=== PATIENT | male | born 1945 | race Caucasian/White ===

== ENCOUNTER → 2016-06-24 | Outpatient (CLI) | payer OTHER, MEDICARE | LOC: BMCIMAGING 15:11 | PROVIDERS: ATTEND Family Medicine | DX: R53.83 Other fatigue (principal); R05 Cough; Z85.820 Personal history of malignant melanoma of skin ==

== ENCOUNTER → 2016-07-19 | Outpatient (CLI) | payer OTHER, MEDICARE ==
[~2016-07-19] MED LIST: GADOBUTROL 10 ML VIAL IVP ONE
== END ==
LOC: FIMAGING 15:29
PROVIDERS: ATTEND Internal Medicine Hematology & Oncology
DX: Z12.89 Encounter for screening for malignant neoplasm of other sites (principal); Z85.820 Personal history of malignant melanoma of skin
CPT/HCPCS: 70553; A9585

== ENCOUNTER → 2017-02-19 | Outpatient (CLI) | payer OTHER, MEDICARE | LOC: FIMAGING 08:17 | PROVIDERS: ATTEND Internal Medicine Hematology & Oncology | DX: N28.9 Disorder of kidney and ureter, unspecified (principal); K76.89 Other specified diseases of liver ==

== ENCOUNTER 2017-09-20 10:06 | Emergency (ER) | payer OTHER, MEDICARE ==
--- NOTE | 2017-09-20 10:18 | CPEKG ---
Heart Rate: 60 RR Interval: 1000 P-R Interval: 200 QRSD Interval: 108 QT Interval: 416 QTC Interval: 416 P [place]: 37 QRS [place]: 3 T Wave [place]: 49 EKG Severity - NORMAL ECG - EKG Impression: SINUS RHYTHM Electronically Signed By: Stoney Agee 21-Sep-2017 07:38:31
--- NOTE | 2017-09-20 10:35 | EDPHY ---
H & P Time Seen by Provider: 09/20/17 10:17 HPI/ROS: CHIEF COMPLAINT: Chest pain HISTORY OF PRESENT ILLNESS: Patient is a 72-year-old male with a history of metastatic melanoma who presents to the emergency department with chest pain. The pain woke him up from sleep between 12:00 a.m.. It was sharp and stabbing. It was mid chest. It lasted for 1-2 minutes and then resolved. He took ibuprofen at the time he now is chest pain-free. He had no shortness of breath or cough. No fevers or chills. No leg pain or swelling. Patient states that [place] intermitt[place] This makes it hard for him to sleep. He tried Diamox for his symptoms. He feels this medicine make him feel fatigued the following days. Yesterday he was back to normal. The patient at took aspirin prior to arrival. REVIEW OF SYSTEMS: My complete review of systems is negative except as mentioned in the HPI. Past Medical/Surgical History: Includes metastatic melanoma, decreased adrenal function, decreased thyroid function, BPH Past surgical history: Melanoma surgery and lymph node dissection Social history: The patient is . He does not smoke. Smoking Status: Former smoker Physical Exam: Vitals noted GENERAL: Well-appearing, in no acute distress, alert. HEENT: Eyes normal to inspection, normal pharynx, no signs of dehydration. NECK: No thyromegaly, no lymphadenopathy, supple. RESPIRATORY: Clear to auscultation bilaterally, no rales, rhonchi or wheezing. CVS: Regular rate and rhythm, no rubs, murmurs, or gallops. ABDOMEN: Soft, nontender, nondistended, no organomegaly. BACK: Normal to inspection, no CVA tenderness. SKIN: Normal color, no rash, warm, dry. No pallor. EXTREMITIES: No pedal edema, no calf tenderness, no Homans sign or cords, no joint swelling. NEURO/PSYCH: Alert and oriented x3, normal mood and affect, normal motor sensory exam. No obvious cranial nerve deficit. Constitutional: Initial Vital Signs Temperature (C) 36.6 C 09/20/17 10:20 Heart Rate 62 09/20/17 10:20 Respiratory Rate 14 09/20/17 10:20 Blood Pressure 123/75 H 09/20/17 10:20 O2 Sat (%) 92 09/20/17 10:20 O2 Delivery Mode Room Air Allergies/Adverse Reactions: ENVIRONMENTAL Allergy (Mild, Uncoded 06/25/13 11:44) RUNNY NOSE/SNEEZING/NASAL CONGESTION/ITCHY EYES Home Medications: Medication Instructions Recorded Cholecalciferol Vit D3 [D--Gracie] 7,500 unit PO DAILY 06/25/13 Ibuprofen [Motrin] 200 mg PO BID PRN 06/25/13 LORazepam [Ativan 0.5 mg (RX)] 0.5 mg PO HS PRN 06/25/13 Melatonin 20 mg PO HS 06/25/13 Naproxen Sodium [Aleve 220 mg 220 mg PO BID 06/25/13 (OTC)] Terazosin HCl [Hytrin] 5 mg PO HS 06/25/13 Fosamax 5mg 09/20/17 Hydrocortisone 09/20/17 Levothyroxine 09/20/17 Medical Decision Making - Diagnostics Imaging Results: Imaging Impressions Chest X-Ray 09/20/17 10:31 Impression: Chest negative for acute abnormality. ED Course/Re-evaluation: In the emergency department I discussed possible etiologies with the patient and his . I answered all his questions. IV was placed. Laboratory studies , EKG and chest x-ray were obtained. EKG shows normal sinus rhythm, normal rate, normal axis, normal intervals. There are no ST or T-wave abnormalities. EKG is normal as interpreted by me. Patient's chemistry panel is unremarkable. Troponin was negative. Patient had a mildly low white count at 3. Patient was mildly anemic with hematocrit 37. I rechecked the patient while here. He was chest pain-free. He had no other complaints Gave the patient warnings prior to leaving. He will return with worsening symptoms. Follow up with primary care physician. Differential Diagnosis: My differential includes but is not limited to ACS, acute GA, pericarditis, myocarditis, dissection, aneurysm, PE, malignancy - Data Points Laboratory Results: Laboratory Results 09/20/17 10:19 09/20/17 10:19 09/20/17 09/20/17 09/20/17 10:24 10:19 10:19 WBC 3.38 10^3/uL L 10^3/uL (3.80-9.50) RBC 4.32 10^6/uL L 10^6/uL (4.40-6.38) Hgb 13.3 g/dL L g/dL (13.7-17.5) Hct 37.4 % L % (40.0-51.0) MCV 86.6 fL fL (81.5-99.8) MCH 30.8 pg pg (27.9-34.1) MCHC 35.6 g/dL g/dL (32.4-36.7) RDW 12.3 % % (11.5-15.2) Plt Count 179 10^3/uL 10^3/uL (150-400) MPV 9.8 fL fL (8.7-11.7) Neut % (Auto) 42.9 % % (39.3-74.2) Lymph % (Auto) 45.9 % H % (15.0-45.0) [place] % (Auto) 6.5 % % (4.5-13.0) Eos % (Auto) 4.1 % % (0.6-7.6) Baso % (Auto) 0.6 % % (0.3-1.7) Nucleat RBC Rel Count 0.0 % % (0.0-0.2) Absolute Neuts (auto) 1.45 10^3/uL L 10^3/uL (1.70-6.50) Absolute Lymphs (auto) 1.55 10^3/uL 10^3/uL (1.00-3.00) Absolute Monos (auto) 0.22 10^3/uL L 10^3/uL (0.30-0.80) Absolute Eos (auto) 0.14 10^3/uL 10^3/uL (0.03-0.40) Absolute Basos (auto) 0.02 10^3/uL 10^3/uL (0.02-0.10) Absolute Nucleated RBC 0.00 10^3/uL 10^3/uL (0-0.01) Immature Gran % 0.0 % % (0.0-1.1) Immature Gran # 0.00 10^3/uL 10^3/uL (0.00-0.10) Sodium 145 mEq/L mEq/L (135-145) Potassium 4.0 mEq/L mEq/L (3.3-5.0) Chloride 108 mEq/L mEq/L (97-110) Carbon Dioxide 25 mEq/l mEq/l (22-31) Anion Gap 12 mEq/L mEq/L (8-16) BUN 27 mg/dL H mg/dL (7-23) Creatinine 0.9 mg/dL mg/dL (0.7-1.3) Estimated GFR > 60 Glucose 76 mg/dL mg/dL (70-100) Calcium 9.1 mg/dL mg/dL (8.5-10.4) Total Bilirubin 0.8 mg/dL mg/dL (0.1-1.4) Conjugated Bilirubin 0.3 mg/dL mg/dL (0.0-0.5) Unconjugated Bilirubin 0.5 mg/dL mg/dL (0.0-1.1) AST 20 IU/L IU/L (17-59) ALT 19 IU/L L IU/L (21-72) Alkaline Phosphatase 77 IU/L IU/L (38-126) POC Troponin I 0.00 ng/mL ng/mL (0.00-0.08) Total Protein 6.5 g/dL g/dL (6.3-8.2) Albumin 3.7 g/dL g/dL (3.5-5.0) Lipase 119 IU/L IU/L (23-300) Point of Care Test Results: Chemistry 09/20/17 10:24 POC Troponin I 0.00 ng/mL ng/mL (0.00-0.08) Departure - Departure Disposition: Home, Routine, Self-Care Clinical Impression: Chest pain Qualifiers: Chest pain type: unspecified Qualified Code(s): R07.9 - Chest pain, unspecified Condition: Good Instructions: Chest Pain (ED) Additional Instructions: Return with increasing chest pain, shortness of breath or any other concerns. You are mildly anemic. This will need follow-up with your primary care physician. Referrals: Eloy Anne DO [Primary Care Provider] - 2-3 days, call for appt.
[2017-09-20 10:39] LABS: PLATELET COUNT 179 10^3/uL (150-400)
[2017-09-20 12:53] VITALS: BP 126/81
== END 2017-09-20 12:53 | disposition home or self-care (01) ==
DX: R07.9 Chest pain, unspecified (principal); Z85.820 Personal history of malignant melanoma of skin; Z87.891 Personal history of nicotine dependence
CPT/HCPCS: 84484-PO

== ENCOUNTER → 2018-04-29 | Outpatient (CLI) | payer OTHER, MEDICARE | LOC: BRMIMAGING 13:08 | PROVIDERS: ATTEND Internal Medicine Rheumatology | DX: Z13.820 Encounter for screening for osteoporosis (principal); M85.89 Other specified disorders of bone density and structure, multiple sites; E07.9 Disorder of thyroid, unspecified; Z79.52 Long term (current) use of systemic steroids ==

== ENCOUNTER 2018-06-01 15:12 | Inpatient (IN) | payer OTHER, MEDICARE ==
--- NOTE | 2018-06-01 15:31 | EDPHY ---
H & P Stated Complaint: ? airway compromise gurgling/hypoxia Time Seen by Provider: 06/01/18 15:31 - Personal History Current Tetanus Diphtheria and Acellular Pertussis (TDAP): Yes - Medical/Surgical History Hx Asthma: No Hx Chronic Respiratory Disease: No Hx Diabetes: No Hx Cardiac Disease: No Hx Renal Disease: No Hx Cirrhosis: No Hx Alcoholism: No Hx HIV/AIDS: No Hx Splenectomy or Spleen Trauma: No Other PMH: monoclonal antibioties-study for melanoma, BPH, - Social History Smoking Status: Former smoker Constitutional: Initial Vital Signs Temperature (C) 37.1 C 06/01/18 15:20 Heart Rate 74 06/01/18 15:20 Respiratory Rate 18 06/01/18 15:20 Blood Pressure 154/59 H 06/01/18 15:20 O2 Sat (%) 86 L 06/01/18 15:20 O2 Delivery Mode Nasal Cannula O2 (L/minute) 2 Allergies/Adverse Reactions: ENVIRONMENTAL Allergy (Mild, Uncoded 06/01/18 15:19) RUNNY NOSE/SNEEZING/NASAL CONGESTION/ITCHY EYES Home Medications: Medication Instructions Recorded Cholecalciferol Vit D3 [D--Gracie] 7,500 unit PO DAILY 06/25/13 Ibuprofen [Motrin] 200 mg PO BID PRN 06/25/13 LORazepam [Ativan 0.5 mg (RX)] 0.5 mg PO HS PRN 06/25/13 Melatonin 20 mg PO HS 06/25/13 Naproxen Sodium [Aleve 220 mg 220 mg PO BID 06/25/13 (OTC)] Terazosin HCl [Hytrin] 5 mg PO HS 06/25/13 Fosamax 5mg 09/20/17 Hydrocortisone 09/20/17 Levothyroxine 09/20/17 Medical Decision Making - Diagnostics Imaging Results: Imaging Impressions Chest X-Ray 06/01/18 15:37 Impression: 1. Left lower lobe pneumonia. 2. Possible minimal left pleural effusion. 3. Recommend follow up until clear. Findings and recommendations discussed with Emergency Department physician, Chun Reece M.D., at 1624 hours, on June 01, 2018. Final report concurs with initial preliminary interpretation. Imaging: Discussed imaging studies w/ call specialist Radiologist, I viewed and interpreted images myself ED Course/Re-evaluation: CHIEF COMPLAINT: Cough, shortness of breath, gurgling HISTORY OF PRESENT ILLNESS: The patient is a 73 y/o male complaining of shortness of breath, sore throat, and a cough onset 3 days ago. The patient initially saw his PCP and had a negative strep and flu swab. However, his symptoms continued to worsen and he presented to an urgent care yesterday and today. Today he developed a fever and his O2Sats at the urgent care dropped to 86%. The provider at the urgent care became concerned that the patient was having trouble maintaining his airway and potentially had Ludwigs angina. He reports that that he normally performs daily activities without difficulty and does not use supplemental oxygen. He did receive the pneumonia vaccination. No headache, body aches, lightheadedness, chest pain, heart palpitations, abdominal pain, urinary or bowel complaints, numbness, paresthesias. REVIEW OF SYSTEMS: A comprehensive 10 system review of systems is otherwise negative aside from elements mentioned in the history of present illness and medical decision making. PHYSICAL EXAM: HR, BP, O2 Sat, RR. Temp noted General Appearance: Alert, well hydrated, appropriate, and non-toxic appearing. Head: Atraumatic without scalp tenderness or obvious injury Eyes: Pupils equal, round, reactive to light and accommodation, EOMI, no trauma , no injection. Ears: Clear bilaterally, no perforation, normal landmarks Nose: Atraumatic, no rhinorrhea, clear. Throat: There is no erythema or exudates, no lesions, normal tonsils, mucus membranes moist. Neck: Supple, 2+ carotid upstroke, nontender, no lymphadenopathy. Respiratory: Decreased breath sounds on the right and coarse rhonchi throughout. No retractions, no distress, no wheezes, and no accessory muscle use. Cardiovascular: Regular rate and rhythm, no murmurs, rubs, or gallops. Bilateral carotid, radial, dorsalis pedis, and posterior tibial pulses intact. Good capillary refill all extremities. Gastrointestinal: Abdomen is soft, nontender, non-distended, no masses, no rebound, no guarding, no peritoneal signs. Musculoskeletal: Normal active ROM of all extremities, atraumatic. Neurological: Alert, appropriate, and interactive. The patient has normal DTRs and non-focal cranial nerves, motor, sensory, and cerebellar exam. Skin: No rashes, good turgor, no nodules on palpation. Past medical history: monoclonal antibodies-study for melanoma, BPH Past surgical history: Denies Family history: Denies Social history: at bedside, lives in [place], retired DIAGNOSTICS/PROCEDURES/CRITICAL CARE TIME: Chest x-ray: Posterior left lower lobe pneumonia DIFFERENTIAL DIAGNOSIS: The differential diagnosis for the patient's shortness of breath and hypoxemia included but was not limited to pneumonia, myocardial infarction, acute mountain sickness, high altitude pulmonary edema, congestive heart failure, and pulmonary embolus. MEDICAL DECISION MAKING: The patient is a 73 y/o male presenting with shortness of breath, sore throat, and a cough onset 3 days ago. On exam he has decreased breath sounds on the right and coarse rhonchi throughout. These symptoms are consistent with pneumonia. Labs and chest x-ray ordered; 2L IV NS administered. Patient has a normal throat and no signs of David's pneumonia. 1621: I reviewed patient's labs; he does not have a white count and his ABG is fine. He does not meet sepsis criteria. 1624: I spoke with Dr. Pearson who reports that the patient has a posterior left lower lobe pneumonia. This patient will need to be admitted to the hospital. 500mg IV Azithromycin and 1gm IV Ceftriaxone administered. 1645: I consulted with the hospitalist service, Dr. Chin accepts admission of this patient. 1650: Reassessed patient and discussed imaging and laboratory findings. I have also discussed plan for admission which the patient is comfortable with. - Data Points Laboratory Results: Laboratory Results 06/01/18 15:40 06/01/18 15:40 06/01/18 06/01/18 06/01/18 15:40 15:40 15:40 WBC RBC Hgb Hct MCV MCH MCHC RDW Plt Count MPV Neut % (Auto) Lymph % (Auto) [place] % (Auto) Eos % (Auto) Baso % (Auto) Nucleat RBC Rel Count Absolute Neuts (auto) Absolute Lymphs (auto) Absolute Monos (auto) Absolute Eos (auto) Absolute Basos (auto) Absolute Nucleated RBC Immature Gran % Immature Gran # PT 15.0 SEC SEC (12.0-15.0) INR 1.16 (0.83-1.16) APTT 34.4 SEC SEC (23.0-38.0) VBG Lactic Acid 0.8 mmol/L mmol/L (0.7-2.1) Sodium 136 mEq/L mEq/L (135-145) Potassium 3.8 mEq/L mEq/L (3.5-5.2) Chloride 106 mEq/L mEq/L (97-110) Carbon Dioxide 25 mEq/l mEq/l (22-31) Anion Gap 5 mEq/L L mEq/L (6-14) BUN 22 mg/dL mg/dL (7-23) Creatinine 0.9 mg/dL mg/dL (0.7-1.3) Estimated GFR > 60 Glucose 110 mg/dL H mg/dL (70-100) Calcium 8.7 mg/dL mg/dL (8.5-10.4) Total Bilirubin 1.5 mg/dL H mg/dL (0.1-1.4) 06/01/18 15:40 WBC 7.14 10^3/uL 10^3/uL (3.80-9.50) RBC 4.31 10^6/uL L 10^6/uL (4.40-6.38) Hgb 13.4 g/dL L g/dL (13.7-17.5) Hct 38.5 % L % (40.0-51.0) MCV 89.3 fL fL (81.5-99.8) MCH 31.1 pg pg (27.9-34.1) MCHC 34.8 g/dL g/dL (32.4-36.7) RDW 12.8 % % (11.5-15.2) Plt Count 156 10^3/uL 10^3/uL (150-400) MPV 9.7 fL fL (8.7-11.7) Neut % (Auto) 78.0 % H % (39.3-74.2) Lymph % (Auto) 11.6 % L % (15.0-45.0) [place] % (Auto) 8.8 % % (4.5-13.0) Eos % (Auto) 1.0 % % (0.6-7.6) Baso % (Auto) 0.3 % % (0.3-1.7) Nucleat RBC Rel Count 0.0 % % (0.0-0.2) Absolute Neuts (auto) 5.57 10^3/uL 10^3/uL (1.70-6.50) Absolute Lymphs (auto) 0.83 10^3/uL L 10^3/uL (1.00-3.00) Absolute Monos (auto) 0.63 10^3/uL 10^3/uL (0.30-0.80) Absolute Eos (auto) 0.07 10^3/uL 10^3/uL (0.03-0.40) Absolute Basos (auto) 0.02 10^3/uL 10^3/uL (0.02-0.10) Absolute Nucleated RBC 0.00 10^3/uL 10^3/uL (0-0.01) Immature Gran % 0.3 % % (0.0-1.1) Immature Gran # 0.02 10^3/uL 10^3/uL (0.00-0.10) PT INR APTT VBG Lactic Acid Sodium Potassium Chloride Carbon Dioxide Anion Gap BUN Creatinine Estimated GFR Glucose Calcium Total Bilirubin Medications Given: Discontinued Medications Sodium Chloride (Ns) 1,000 mls @ 0 mls/hr IV EDNOW ONE; Wide Open PRN Reason: Protocol Stop: 06/01/18 16:10 Last Admin: 06/01/18 16:13 Dose: 1,000 mls Ceftriaxone Sodium/Dextrose (Rocephin 1 Gm (Premix)) 50 mls @ 100 mls/hr IV EDNOW ONE PRN Reason: Protocol Stop: 06/01/18 16:52 Last Admin: 06/01/18 16:35 Dose: 50 mls Departure - Departure Disposition: [facility] Inpatient Acute Clinical Impression: Hypoxemia Pneumonia Qualifiers: Pneumonia type: due to unspecified organism Laterality: left Lung location: lower lobe of lung Qualified Code(s): J18.1 - Lobar pneumonia, unspecified organism Condition: Fair Referrals: Eloy Anne DO [Primary Care Provider] - As per Instructions Report Scribed for: Chun Reece Report Scribed by: Carey Moreira Date of Report: 06/01/18 Time of Report: 15:34
[2018-06-01 15:59] LABS: PLATELET COUNT 156 10^3/uL (150-400)
[2018-06-01] MEDS ORDERED: NS 1,000 ML IV ONE (16:09)
[2018-06-01] MEDS ORDERED: AZITHROMYCIN IV 500 MG in NS 250 ML IV ONE (16:24)
[2018-06-01 16:27] LABS: INR 1.16 (0.83-1.16)
[2018-06-01] MEDS ORDERED: ONDANSETRON 4 MG/2 ML VIAL IVP PRN (16:58)
[2018-06-01] MEDS ORDERED: ONDANSETRON DISINTEGRATING 4 MG TAB PO PRN (16:58)
--- NOTE | 2018-06-01 18:02 | PDGENHP ---
History and Physical - Chief Complaint Shortness of breath, sore throat - History of Present Illness HPI: 73 y/o male with hx of metastatic melanoma, hypothyroidism, and BPH presents to the ED with 3 days worth of shortness of breath, sore throat, and productive cough (yellow sputum). Initially, he went to his PCP who tested him for influenza and strep but it was negative. However his symptoms continued to worsen; he is hypoxemic on RA sating at 86% and febrile at 38.1c. He has had a decrease in appetite and fluids because of his sore throat. Endorses chills. He was able to take his PO medications this AM. He denies nausea, chest pains, palpitations, lightheadedness. CXR reveal left lower pneumonia, respiratory panel PCR negative. He is being treated for CAP. Past Medical History 1. Metastatic melanoma (~6 years ago was on immunosuppressants) 2. Hypothyroidism 3. BPH 4. Decreased adrenal function Past Surgical History 1. Melanoma sx w/lymph node dissection (~6 years ago) Social 1. Former smoker, denies illicit drug use. Occasionally smokes cannabis as well as edibles. Drinks etoh occasionally. 2. , lives in [place]. History Information - Allergies/Home Medication List Allergies/Adverse Reactions: ENVIRONMENTAL Allergy (Mild, Uncoded 06/01/18 15:19) RUNNY NOSE/SNEEZING/NASAL CONGESTION/ITCHY EYES Home Medications: Ibuprofen [Motrin] 200 mg PO BID PRN 06/25/13 [Last Taken Unknown] LORazepam [Ativan 0.5 mg (RX)] 0.5 mg PO HS PRN 06/25/13 [Last Taken Unknown] Terazosin HCl [Hytrin] 5 mg PO HS 06/25/13 [Last Taken 05/31/18] Hydrocortisone 20 - 40 mg PO DAILY PRN 09/20/17 [Last Taken 06/01/18 40mg] Levothyroxine [Synthroid 150 mcg (*)] 150 mcg PO DAILY06 09/20/17 [Last Taken ] Acetaminophen with Codeine [TYLENOL #3] 1.5 - 3 tab PO DAILY PRN 06/01/18 [Last Taken 05/31/18] Melatonin [Melatonin 5 mg] 5 - 10 mg PO HS 06/01/18 [Last Taken 05/31/18] Ranitidine HCl 150 mg PO DAILY PRN 06/01/18 [Last Taken Unknown] I have personally reviewed and updated: family history, medical history, social history, surgical history Past Medical History: See HPI list - Surgical History Additional surgical history: See HPI list - Family History Positive for: cancer (Kidney), stroke - Social History Smoking Status: Former smoker Alcohol Use: Occasionally Drug Use: Marijuana Review of Systems Review of Systems: ROS: 10pt was reviewed & negative except for what was stated in HPI & below Physical Exam Physical Exam: Lab data and imaging were reviewed. Case discussed with admitting physician, Dr. Marisol Chin WBC: 7.14 Lactic Acid: 0.8 BUN/Cr: 22/0.9 CXR: see HPI Temp Pulse Resp BP Pulse Ox 38.1 C 69 24 H 130/69 H 94 06/01/18 17:50 06/01/18 17:50 06/01/18 17:50 06/01/18 17:50 06/01/18 17:50 O2 (L/minute) 2 Constitutional: uncomfortable, other (Mildly distressed patient, audible rhonchi. Per pt, reports feeling better since arrival to ED especially with O2 supplementation ) Eyes: PERRL, anicteric sclera, EOMI Ears, Nose, Mouth, Throat: moist mucous membranes, hearing normal, ears appear normal, no oral mucosal ulcers, other (No indication of restricted airway; able to swallow, speak) Cardiovascular: regular rate and rhythym, no murmur, rub, or gallop, No edema Peripheral Pulses: 2+: dorsalis-pedis (R) (Radial 2+), dorsalis-pedis (L) ( Radial 2+) Respiratory: rhonchi Gastrointestinal: normoactive bowel sounds, soft, non-tender abdomen, no palpable masses Genitourinary: no bladder fullness, no bladder tenderness Skin: warm, normal color, no rashes or abrasions, no fluctuance, no induration, No mottled Musculoskeletal: full muscle strength, no muscle tenderness, normal joint ROM, no joint effusions Neurologic: AAOx3, sensation intact bilaterally, CN II-XII Intact Psychiatric: interacting appropriately, not anxious, not encephalopathic, thought process linear Lymph, Heme, Immunologic: no cervical LAD, no supraclavicular LAD Lab Data & Imaging Review 06/01/18 15:40 06/01/18 15:40 WBC 7.14 10^3/uL (3.80-9.50) 06/01/18 15:40 RBC 4.31 10^6/uL (4.40-6.38) L 06/01/18 15:40 Hgb 13.4 g/dL (13.7-17.5) L 06/01/18 15:40 Hct 38.5 % (40.0-51.0) L 06/01/18 15:40 MCV 89.3 fL (81.5-99.8) 06/01/18 15:40 MCH 31.1 pg (27.9-34.1) 06/01/18 15:40 MCHC 34.8 g/dL (32.4-36.7) 06/01/18 15:40 RDW 12.8 % (11.5-15.2) 06/01/18 15:40 Plt Count 156 10^3/uL (150-400) 06/01/18 15:40 MPV 9.7 fL (8.7-11.7) 06/01/18 15:40 Neut % (Auto) 78.0 % (39.3-74.2) H 06/01/18 15:40 Lymph % (Auto) 11.6 % (15.0-45.0) L 06/01/18 15:40 [place] % (Auto) 8.8 % (4.5-13.0) 06/01/18 15:40 Eos % (Auto) 1.0 % (0.6-7.6) 06/01/18 15:40 Baso % (Auto) 0.3 % (0.3-1.7) 06/01/18 15:40 Nucleat RBC Rel Count 0.0 % (0.0-0.2) 06/01/18 15:40 Absolute Neuts (auto) 5.57 10^3/uL (1.70-6.50) 06/01/18 15:40 Absolute Lymphs (auto) 0.83 10^3/uL (1.00-3.00) L 06/01/18 15:40 Absolute Monos (auto) 0.63 10^3/uL (0.30-0.80) 06/01/18 15:40 Absolute Eos (auto) 0.07 10^3/uL (0.03-0.40) 06/01/18 15:40 Absolute Basos (auto) 0.02 10^3/uL (0.02-0.10) 06/01/18 15:40 Absolute Nucleated RBC 0.00 10^3/uL (0-0.01) 06/01/18 15:40 Immature Gran % 0.3 % (0.0-1.1) 06/01/18 15:40 Immature Gran # 0.02 10^3/uL (0.00-0.10) 06/01/18 15:40 PT 15.0 SEC (12.0-15.0) 06/01/18 15:40 INR 1.16 (0.83-1.16) 06/01/18 15:40 APTT 34.4 SEC (23.0-38.0) 06/01/18 15:40 VBG Lactic Acid 0.8 mmol/L (0.7-2.1) 06/01/18 15:40 Sodium 136 mEq/L (135-145) 06/01/18 15:40 Potassium 3.8 mEq/L (3.5-5.2) 06/01/18 15:40 Chloride 106 mEq/L (97-110) 06/01/18 15:40 Carbon Dioxide 25 mEq/l (22-31) 06/01/18 15:40 Anion Gap 5 mEq/L (6-14) L 06/01/18 15:40 BUN 22 mg/dL (7-23) 06/01/18 15:40 Creatinine 0.9 mg/dL (0.7-1.3) 06/01/18 15:40 Estimated GFR > 60 06/01/18 15:40 Glucose 110 mg/dL (70-100) H 06/01/18 15:40 Calcium 8.7 mg/dL (8.5-10.4) 06/01/18 15:40 Total Bilirubin 1.5 mg/dL (0.1-1.4) H 06/01/18 15:40 Assessment & Plan Plan: 73 y/o male with hx of melanoma mets, BPH and hypothyroidism presenting with 3 days worth of shortness of breath, productive cough, and sore throat. #Acute hypoxic respiratory failure 2/2 suspected PNA: Respiratory panel PCR negative. Febrile. CXR indicating left lower lobe PNA with possible minimal left pleural effusion. Requires oxygen supplementation to maintain sats > 90%. Lactic acid 0.8, WBC 7.14 -Blood culture pending -Received Azithromycin + Ceftriaxone in ED; procalcitonin WNL 0.06 however w/ his presenting symptoms, will continue these abx in AM. He reports already improvement in his status since arrival to ED and receiving fluids, abx and O2. -If o2 does not improve tomorrow, consider duoneb tx -Hydrocortisone PRN -RA challenge in AM -CBC/CMP in AM -D-Dimer pending. I consider possible PE d/t his past hx of cancer + former smoker and present cannabis smoker. The D-dimer may be elevated d/t current infection, however I think if it does come back elevated, a chest CTA w/ contrast should be ordered to r/o PE. #Sore throat: lozenges PRN. Encourage liquids and Tylenol PRN. #Fever: Tylenol PRN. IVF. #BPH: on terazosin #Insomnia: on Ativan and melatonin. Diet: Regular VTE ppx: Lovenox subq Code: Full Dispo: Admit to obs
[2018-06-01] MEDS ORDERED: HYDROCORTISONE PO PRN (18:27)
[2018-06-01] MEDS ORDERED: LORazepam 0.5 MG TAB PO PRN (18:27)
--- NOTE | 2018-06-01 19:18 | GHP ---
[f rep st] HISTORY AND PHYSICAL DATE OF ADMISSION: 06/01/2018 CHIEF COMPLAINT: Sore throat, fever. HISTORY OF PRESENT ILLNESS: A pleasant 73-year-old male, history of metastatic melanoma, BPH, hypothyroidism, presenting with 3 days shortness of breath, productive cough and sore throat. Has had decreased p.o. intake for the last day and a half. No nausea, vomiting, or diarrhea. No chills. Please see full H and P dictated by Kelli Butler NP. I evaluated and examined the patient with her, agree with assessment and plan except noted below. PHYSICAL EXAMINATION: VITAL SIGNS: Temperature 38.1, blood pressure 130/69, heart rate in 60s, respiration 24, 94% on 2 L, 86% on room air. GENERAL: Ill- appearing, diaphoretic. HEENT: Dry mucous membranes. Oropharynx is red but no exudate. Positive submandibular cervical tenderness and adenopathy. CV: Regular rate and rhythm. LUNGS: Rhonchorous. : No Vásquez. MUSCULOSKELETAL : 5/5 upper and lower extremities. NEURO: 2 through 12 intact. PSYCH: Alert and oriented x3. LABORATORY DATA: WBC 7, hemoglobin 13, hematocrit 38, platelets 156. D-dimer is 0.63. Lactate 0.8. Sodium 136, potassium 3.8, chloride 106, carbon dioxide 25, creatinine 0.9, total bilirubin 1.5. Procalcitonin 0.06. Chest x-ray is personally reviewed by me. Left side pneumonia positive spine sign. ASSESSMENT/PLAN: 1. Acute hypoxemic respiratory failure: indicated by room air sat of 86%. 2/2 to pneumonia. IV ceftriaxone and azithromycin. 2. Sore throat. Negative for strep 3. Fever: suspect pneumonia despite having a negative procalcitonin. Febrile, productive cough and opacity on CXR. Check strep/Legionella urine antigen. Blood cultures are pending. Negative respiratory panel. 4. History of metastatic melanoma, status post immunotherapy. 5. BPH. Home medications. 6. Adrenal insufficiency: from immunotherapy. Will schedule hydrocortisone given acute illness. If clinically declines, may warrant stress dosing. 7. Diet: Regular. 8. Deep venous thrombosis prophylaxis. Lovenox. 9. Disposition: Patient warrants observation admission given acute pneumonia warranting IV fluids and antibiotics. /[id number]/MODL MTDD
[2018-06-01] MEDS: FAMOTIDINE 20 MG TAB PO SCH (21:38)
[2018-06-01] MEDS: ACETAMINOPHEN 325 MG TAB PO PRN (21:39)
[2018-06-01] MEDS: TERAZOSIN HCL 5 MG CAP PO SCH (21:39)
[2018-06-02] MEDS: MELATONIN 3 MG TAB PO SCH ×2 (02:21→20:33)
[2018-06-02] MEDS: LEVOTHYROXINE 150 MCG TAB PO SCH (04:59)
[2018-06-02 05:24] LABS: PLATELET COUNT 140 10^3/uL (150-400)
[2018-06-02] MEDS: NS 1,000 ML IV SCH ×2 (08:22→20:20)
[2018-06-02] MEDS: ENOXAPARIN 40 MG/0.4 ML SYR SC SCH (08:24)
[2018-06-02] MEDS: CEPACOL LOZENGE PO PRN (08:25)
[2018-06-02] MEDS: ACETAMINOPHEN 325 MG TAB PO PRN ×2 (08:25→20:26)
[2018-06-02] MEDS: FAMOTIDINE 20 MG TAB PO SCH ×2 (08:25→20:32)
[2018-06-02] MEDS ORDERED: HYDROCORTISONE 10 MG TAB PO SCH (09:00)
--- NOTE | 2018-06-02 09:36 | ASMTCMCOM ---
CM Note CM Note Notes: Pts case discussed w/ Flower Abbott NP. Pt is a 73 y/o man admitted for hypoxemia and pneumonia. Therapies have been ordered and awaiting recommendations. Needs are TBD at this time. CM to follow. Plan: TBD Date Signed: 06/02/2018 09:36 AM Electronically Signed By:JOSE A Ron
--- NOTE | 2018-06-02 10:14 | HOSPPROG ---
Hospitalist Progress Note Assessment/Plan: Mr Tariq is a73 y/o who has had decreased intake for a few days. Shares w me he has had an ongoing cough. First encounter, chart reviewed. *Acute hypoxemic respirator failure -requiring O2 *PNA -Ceftriaxone and Azithro (06/01) -Blood cx pending -fever of 38.5 last evening but none this morning -procalcitonin negative, Resp PCR negative -evaluated his chest x ray which shows a left lower lobe pna *hx of metastatic melanoma -s/p immunotherapy *Adrenal insufficiency -increase his hydrocortisone to 40 mg (usually on 20 mg) *BPH -home meds resumed *[place] -does not have hearing aids here *Plan: patient cont to feel quite poorly, no appetite, coughing. Will require another midnight stay for treatment. In addition, will ask ST to evaluate for a cognitive evaluation. He was confused yesterday per nursing staff. Subjective: Walt said he is feeling poorly, not eating much. Objective: Vital Signs Temp Pulse Resp BP Pulse Ox 37.7 C 74 16 139/65 H 91 L 06/02/18 08:17 06/02/18 08:40 06/02/18 08:40 06/02/18 08:33 06/02/18 08:40 Laboratory Results 06/02/18 04:32 06/02/18 04:32 06/01/18 06/02/18 06/03/18 05:59 05:59 05:59 Intake Total 1325 Balance 1325 PT 15.0 SEC (12.0-15.0) 06/01/18 15:40 INR 1.16 (0.83-1.16) 06/01/18 15:40 - Physical Exam Constitutional: chronically ill appearing Eyes: PERRL Ears, Nose, Mouth, Throat: hard of hearing Cardiovascular: regular rate and rhythym, systolic murmur (soft ) Respiratory: no respiratory distress, reduced air movement (left base) Gastrointestinal: normoactive bowel sounds Skin: warm Neurologic: AAOx3 Psychiatric: interacting appropriately ICD10 Worksheet Patient Problems: Problems Problem Status Onset Hypoxemia Acute Pneumonia Acute mesenteric inflammation Acute
[2018-06-02] MEDS ORDERED: HYDROCORTISONE 10 MG TAB PO ONE (10:15)
[2018-06-02] MEDS: AZITHROMYCIN IV 500 MG in NS 250 ML IV SCH (17:47)
[2018-06-02] MEDS: TERAZOSIN HCL 5 MG CAP PO SCH (20:33)
[2018-06-03] MEDS: LEVOTHYROXINE 150 MCG TAB PO SCH (04:49)
[2018-06-03] MEDS: FAMOTIDINE 20 MG TAB PO SCH ×2 (08:37→20:24)
[2018-06-03] MEDS: HYDROCORTISONE 10 MG TAB PO SCH (08:37)
[2018-06-03] MEDS: ENOXAPARIN 40 MG/0.4 ML SYR SC SCH (08:37)
--- NOTE | 2018-06-03 08:39 | HOSPPROG ---
Hospitalist Progress Note Assessment/Plan: Mr Tariq is a73 y/o who has had decreased intake for a few days. Shares w me he has had an ongoing cough. *Acute hypoxemic respirator failure -resolved, on room air *PNA -Ceftriaxone and Azithro (06/01) -Blood cx no growth -afebrile since yesterday -procalcitonin negative, Resp PCR negative -evaluated his chest x ray which shows a left lower lobe pna *hx of metastatic melanoma -s/p immunotherapy *Adrenal insufficiency -increase his hydrocortisone to 40 mg (usually on 20 mg) *BPH -home meds resumed *[place] -does not have hearing aids here *Plan: therapies are recommending home care. ST evaluated today and his cognitive function is good. Hopefully, can dc later today or tomorrow. Subjective: Walt is slowly feeling better, doesn't have much of an appetite. Stomach is upset. Objective: Vital Signs Temp Pulse Resp BP Pulse Ox 36.9 C 58 L 18 142/68 H 92 06/03/18 08:00 06/03/18 08:00 06/03/18 08:00 06/03/18 08:00 06/03/18 08:00 06/02/18 06/03/18 06/04/18 05:59 05:59 05:59 Intake Total 2550 Balance 2550 PT 15.0 SEC (12.0-15.0) 06/01/18 15:40 INR 1.16 (0.83-1.16) 06/01/18 15:40 - Physical Exam Constitutional: no apparent distress, appears nourished Eyes: PERRL Ears, Nose, Mouth, Throat: hearing normal Cardiovascular: regular rate and rhythym Respiratory: no respiratory distress, rhonchi (left base) Skin: warm Musculoskeletal: generalized weakness Neurologic: AAOx3 Psychiatric: interacting appropriately ICD10 Worksheet Patient Problems: Problems Problem Status Onset Hypoxemia Acute Pneumonia Acute mesenteric inflammation Acute
--- NOTE | 2018-06-03 08:56 | PDMN ---
Medical Necessity Medical necessity: Change to IP, as of 06/02/18, per [employer] & MCG M-282; los >2 mn for ongoing management of pneumonia w/acute hypoxemic respiratory failure (87% on RA) & confusion; requiring further monitoring, supportive care, IV abx & therapies; hx multiple myeloma s/p immunotherapy, adrenal insufficiency
--- NOTE | 2018-06-03 11:30 | ASMTCMCOM ---
CM Note CM Note Notes: Pts case discussed w/ Flower Abbott NP. CM spoke to Juanita, the physical therapist. She has cleared pt to d/c home without any needs or 24hr supervision. OT has cleared pt to d/c home without any needs as well. CM available for changes. Plan: Independent Date Signed: 06/03/2018 11:30 AM Electronically Signed By:JOSE A Ron
[2018-06-03] MEDS: ACETAMINOPHEN 325 MG TAB PO PRN ×2 (14:08→18:34)
[2018-06-03] MEDS: AZITHROMYCIN IV 500 MG in NS 250 ML IV SCH (17:09)
[2018-06-03] MEDS: BENZONATATE 100 MG CAP PO PRN ×2 (17:56→23:35)
[2018-06-03] MEDS: MELATONIN 3 MG TAB PO SCH (20:24)
[2018-06-03] MEDS: TERAZOSIN HCL 5 MG CAP PO SCH (20:24)
[2018-06-03] MEDS: CEPACOL LOZENGE PO PRN (20:25)
[2018-06-04] MEDS: LEVOTHYROXINE 150 MCG TAB PO SCH (05:43)
[2018-06-04 07:53] VITALS: BP 124/70
[2018-06-04] MEDS: FAMOTIDINE 20 MG TAB PO SCH (08:05)
[2018-06-04] MEDS: HYDROCORTISONE 10 MG TAB PO SCH (08:06)
[2018-06-04] MEDS: ENOXAPARIN 40 MG/0.4 ML SYR SC SCH (08:06)
--- NOTE | 2018-06-04 09:24 | HOSPPROG ---
Hospitalist Progress Note Assessment/Plan: Mr Tariq is a73 y/o who has had decreased intake for a few days. Shares w me he has had an ongoing cough. *Acute hypoxemic respirator failure -resolved, on room air *PNA -Ceftriaxone and Azithro (06/01) -Blood cx no growth -afebrile -procalcitonin negative, Resp PCR negative -evaluated his chest x ray which shows a left lower lobe pna *hx of metastatic melanoma -s/p immunotherapy *Adrenal insufficiency -increase his hydrocortisone to 40 mg (usually on 20 mg) *BPH -home meds resumed *[place] -does not have hearing aids here *Plan: dc home Subjective: Walt is dressed ready to be dc, feels good. Objective: Vital Signs Temp Pulse Resp BP Pulse Ox 37.1 C 71 16 124/70 H 90 L 06/04/18 07:52 06/04/18 07:52 06/04/18 07:52 06/04/18 07:52 06/04/18 07:52 06/03/18 06/04/18 06/05/18 05:59 05:59 05:59 Intake Total 2550 Balance 2550 PT 15.0 SEC (12.0-15.0) 06/01/18 15:40 INR 1.16 (0.83-1.16) 06/01/18 15:40 - Physical Exam Constitutional: no apparent distress, appears nourished, not in pain Eyes: PERRL Ears, Nose, Mouth, Throat: hard of hearing Cardiovascular: regular rate and rhythym Respiratory: no respiratory distress, clear to auscultation, other (loose cough) Gastrointestinal: normoactive bowel sounds Skin: warm Musculoskeletal: full muscle strength Neurologic: AAOx3 Psychiatric: interacting appropriately ICD10 Worksheet Patient Problems: Problems Problem Status Onset Hypoxemia Acute Pneumonia Acute Chronic Disease Mgmt/Transitional Care Acute mesenteric inflammation Acute
--- NOTE | 2018-06-04 09:55 | GDS ---
[f rep st] DISCHARGE SUMMARY DISCHARGE DIAGNOSES: 1. Acute hypoxemic respiratory failure. 2. Pneumonia. 3. History of metastatic melanoma. 4. Adrenal insufficiency. 5. Benign prostatic hypertrophy. 6. Hard of hearing. Briefly, the patient is a 73-year-old gentleman who has had decreased intake for several days and als o has been having an ongoing cough. He came to the emergency room and had a chest x-ray performed th at showed a left lower lobe pneumonia. He was treated with IV antibiotics. Blood cultures were [facility], which did not show any growth. A respiratory panel PCR was performed which was negative. Today , he is feeling markedly better. He will be discharged home. HOSPITAL COURSE PER PROBLEM: 1. Left lower lobe pneumonia, markedly improved. He has been afebrile. He will be treated with sev eral more days of oral antibiotics. Recommendation is for him to get a repeat chest x-ray in 6 weeks . 2. Acute hypoxemic respiratory failure, resolved. 3. History of metastatic melanoma, status post immunotherapy. 4. Adrenal insufficiency. His 1st day, he was doing poorly. His hydrocortisone dose was doubled, w hich significantly helped him. He will go back to his regular home dose. 5. BPH. Resumed his home medications. 6. Hard of hearing. He has hearing aids in. DISCHARGE CONDITION: Stable. Blood pressure is 124/70, heart rate is 71, respiratory rate is 16, O2 sats on room air 90%, temperature is 37.1 Celsius. MEDICATIONS AT DISCHARGE: Please see the EMR. DISCHARGE INSTRUCTIONS: 1. Take Levaquin for the next 3 days. If he has any pain in his tendons, especially the Achilles te ndon, to return to the ER. 2. Continue his hydrocortisone higher dosages for 2 more days and then go back to his normal home do se. 3. If he develops fever, chills, shortness of breath, return to the ER. 4. Get a repeat chest x-ray in 6 weeks to assure resolution. Greater than 30 minutes discharging and coordinating the patient's care. /[id number]/MODL
== END 2018-06-04 10:14 | disposition home or self-care (01) | DRG 193 ==
LOC: F3E 20:50 → OBSVTOIN 06-02 10:31
PROVIDERS: ADMIT Internal Medicine; ATTEND Internal Medicine
DX: J18.9 Pneumonia, unspecified organism (principal); J96.01 Acute respiratory failure with hypoxia; E27.40 Unspecified adrenocortical insufficiency; N40.0 Benign prostatic hyperplasia without lower urinary tract symptoms; Z85.820 Personal history of malignant melanoma of skin; C77.9 Secondary and unspecified malignant neoplasm of lymph node, unspecified; E03.9 Hypothyroidism, unspecified; Z87.891 Personal history of nicotine dependence; G47.00 Insomnia, unspecified; H91.90 Unspecified hearing loss, unspecified ear
CPT/HCPCS: 87449-90; 92523-GN; 96365; 97116-GP; 97161-GP; 97165-GO; 97535-GO; G0378; J0456; J0696; J1650

== ENCOUNTER → 2018-07-16 | Outpatient (CLI) | payer OTHER, MEDICARE | LOC: FIMAGING 09:25 → FLAB 09:25 → EDSTATUS 09:26 | PROVIDERS: ATTEND Family Medicine | DX: Z09 Encounter for follow-up examination after completed treatment for conditions other than malignant neoplasm (principal); I77.9 Disorder of arteries and arterioles, unspecified; Z87.01 Personal history of pneumonia (recurrent) ==